=== PATIENT | female | born 1960 | race African-American/Black ===

== ENCOUNTER 2019-01-02 01:20 | Inpatient (IN) | payer SELFPAY ==
[~2019-01-02] VITALS: Ht 157.5 cm; Wt 61.7 kg
[2019-01-02] MEDS ORDERED: SODIUM CHLORIDE 0.9% 1,000 ML IV ONE (01:37)
[2019-01-02 02:12] LABS: BASOPHILS % 0.3 % (0.0-2.0); EOSINOPHILS % 0.3 % (0.0-5.0); HEMATOCRIT. 36.2 % (36.0-48.0); HEMOGLOBIN. 12.1 g/dL (12.0-16.0); LYMPHOCYTES % 29.9 % (20.0-50.0); MEAN CORPUSCULAR HEMOGLOBIN 28.7 pg (28.0-32.0); MEAN CORPUSCULAR VOLUME 86.2 fL (81.0-99.0); MEAN PLATELET VOLUME 8.5 fl (7.4-10.4); MONOCYTES % 5.3 % (2.0-8.0); NEUTROPHILS % 64.2 % (40.0-76.0); PLATELET 263 x1000/uL (130-400); RED CELL DISTRIBUTION WIDTH 13.2 % (11.6-14.6)
[2019-01-02 02:16] LABS: CHLORIDE 106 mEq/L (98-107)
[2019-01-02 03:20] LABS: CLARITY URINE CLEAR (CLEAR); COLOR URINE YELLOW (YELLOW); KETONES URINE NEGATIVE (NEGATIVE); LEUKOCYTE ESTERASE URINE NEGATIVE (NEGATIVE); NITRITE URINE NEGATIVE (NEGATIVE); OCCULT BLOOD URINE NEGATIVE (NEGATIVE); PROTEIN URINE NEGATIVE (NEGATIVE); UROBILINOGEN URINE 0.2 E.U./dL (0.2-1.0)
[2019-01-02] MEDS ORDERED: NITROGLYCERIN 0.4MG TABLET SL SL PRN (07:45)
[2019-01-02] MEDS ORDERED: DOCUSATE SODIUM 100MG CAPSULE PO PRN (07:45)
[2019-01-02] MEDS ORDERED: CLONIDINE 0.1MG TABLET PO PRN (07:45)
[2019-01-02] MEDS ORDERED: ONDANSETRON HCL 4MG/2ML INJ IV PRN (07:45)
[2019-01-02] MEDS ORDERED: MAGNESIUM/ALUMINUM HYDROXIDE/SIMETHICONE 30ML UDC PO PRN (07:45)
[2019-01-02] MEDS ORDERED: IPRATROPIUM/ALBUTEROL 0.5-3(2.5)MG/3ML NEB INH PRN (07:45)
[2019-01-02] MEDS ORDERED: GUAIFENESIN 200MG/10ML SUGAR FREE UDC PO PRN (07:45)
[2019-01-02] MEDS ORDERED: KETOROLAC 15MG/ML VIAL IV PRN (07:45)
[2019-01-02] MEDS ORDERED: ACETAMINOPHEN 325MG TABLET PO PRN (07:45)
[2019-01-02] MEDS ORDERED: POTASSIUM CHLORIDE 20MEQ TABLET SR PO SCH (07:45)
[2019-01-02] MEDS: SODIUM CHLORIDE 0.9% 1,000 ML IV SCH ×2 (09:21→23:04)
[2019-01-02 12:03] LABS: ETHANOL BLOOD < 10 mg/dL
[2019-01-02 12:06] LABS: LDL CHOLESTEROL 163 mg/dL (5-100)
[2019-01-02 12:08] LABS: HDL CHOLESTEROL 79 mg/dL (40-59)
[2019-01-02 15:04] VITALS: BP 115/73
[2019-01-02 15:11] VITALS: BP 115/73
[2019-01-02 16:00] VITALS: BP 121/72
[2019-01-02] MEDS: FAMOTIDINE 20MG TABLET PO SCH ×2 (16:55→22:07)
[2019-01-02] MEDS: ASPIRIN 325MG EC TABLET PO SCH (16:55)
[2019-01-02] MEDS: ENOXAPARIN 40MG/0.4ML SYR SUBCUT SCH (16:55)
[2019-01-02 18:02] LABS: *AMPHETAMINES SCREEN URINE NEGATIVE (NEGATIVE); *BARBITURATES SCREEN URINE NEGATIVE (NEGATIVE); *BENZODIAZEPINES SCREEN URINE NEGATIVE (NEGATIVE); *COCAINE SCREEN URINE NEGATIVE (NEGATIVE); METHADONE URINE SCREEN NEGATIVE (NEGATIVE)
[2019-01-02 18:03] LABS: CANNABINOID URINE SCREEN NEGATIVE (NEGATIVE); OPIATES URINE SCREEN NEGATIVE (NEGATIVE); PHENCYCLIDINE URINE SCREEN NEGATIVE (NEGATIVE)
[2019-01-02 20:00] VITALS: BP 133/79
[2019-01-02 20:13] LABS: CREATINE KINASE 291 IU/L (26-192)
[2019-01-02 20:14] LABS: CREATINE KINASE MB FRACTION 2.2 ng/mL (0.5-3.6)
[2019-01-02] MEDS ORDERED: ATORVASTATIN CALCIUM 10MG TABLET PO SCH (21:00)
[2019-01-02] MEDS ORDERED: ZOLPIDEM TARTRATE 5MG TABLET PO PRN (21:00)
[2019-01-02 23:10] LABS: CREATINE KINASE 279 IU/L (26-192)
[2019-01-03] VITALS: BP 126/79
[2019-01-03 04:00] VITALS: BP 116/72
[2019-01-03 08:00] VITALS: BP 127/82
[2019-01-03] MEDS: FAMOTIDINE 20MG TABLET PO SCH (08:03)
[2019-01-03] MEDS: ASPIRIN 325MG EC TABLET PO SCH (08:03)
[2019-01-03 11:37] VITALS: BP 127/82
[2019-01-03 12:00] VITALS: BP 124/88
[2019-01-03] MEDS: ENOXAPARIN 40MG/0.4ML SYR SUBCUT SCH (12:53)
== END 2019-01-03 15:00 | disposition home or self-care (01) | DRG 204 ==
LOC: ER 01:20 → EDBEDREQ 05:10 → EDBEDREQTM 05:10 → ENRESERV 13:47 → 5WST 13:49
PROVIDERS: ADMIT Internal Medicine; ATTEND Internal Medicine
DX: R55 Syncope and collapse (principal); E78.00 Pure hypercholesterolemia, unspecified; E87.6 Hypokalemia
CPT/HCPCS: 36415; 71045; 80061; 80305; 80320; 82550; 82553; 83036; 83880; 84484; 93005; 93970; 96374; 99285; J1650; J7030; G0480